=== PATIENT | female | born 1990 | race Caucasian/White ===

== ENCOUNTER 2017-04-02 14:30 | Emergency (ER) | payer MEDICAID ==
[2017-04-02] MEDS ORDERED: Ketorolac 60 MG/2 ML SDV IM ONE (14:53)
[2017-04-02] MEDS ORDERED: Lidocaine 2% Viscous Solution 15 ML Cup PO ONE (14:54)
[2017-04-02] MEDS ORDERED: Benzocaine 20% Topical Spray UD MUCMEM ONE (14:54)
--- NOTE | 2017-04-02 15:00 | EDM.PDOC ---
ED HPI GENERAL MEDICAL PROBLEM - General Chief Complaint: ENT Problem Stated Complaint: BROKEN TOOTH Time Seen by Provider: 04/02/17 14:42 Source of Information: Reports: Patient History Limitations: Reports: No Limitations - History of Present Illness INITIAL COMMENTS - FREE TEXT/NARRATIVE: Presents reporting that a deep filling fell out of a tooth in the left lower quadrant of her dentition last night. She now complains of throbbing pain that increases with air exposure, cold, hot or pressure. Left Lower Tooth/Teeth Pain Score (Numeric/FACES): 7 - Related Data Allergies Allergy/AdvReac Type Severity Reaction Status Date / Time acetaminophen [From Tylenol] Allergy Swelling Verified 04/02/17 14:46 Penicillins Allergy Numbness Verified 01/03/17 04:12 wheat Allergy Rash Verified 01/03/17 04:12 Home Meds: Home Meds Clindamycin HCl 300 mg PO TID #30 capsule 04/02/17 [Rx] Past Medical History - Past Health History Medical/Surgical History: Denies Medical/Surgical History HEENT History: Reports: None Cardiovascular History: Reports: None Respiratory History: Reports: None Gastrointestinal History: Reports: None Genitourinary History: Reports: None PARTNER History: Reports: Musculoskeletal History: Reports: None Neurological History: Reports: None Psychiatric History: Reports: None Endocrine/Metabolic History: Reports: None Hematologic History: Reports: None Immunologic History: Reports: None Oncologic (Cancer) History: Reports: None Dermatologic History: Reports: None - Infectious Disease History Infectious Disease History: Reports: Chicken Pox, MRSA - Past Surgical History GI Surgical History: Reports: Cholecystectomy Social & Family History - Family History Family Medical History: Noncontributory - Tobacco Use Smoking Status *Q: Current Every Day Smoker Years of Tobacco use: 2 Packs/Tins Daily: 1 - Caffeine Use Caffeine Use: Reports: None - Recreational Drug Use Recreational Drug Use: No Drug Use in Last 12 Months: Yes Recreational Drug Type: Reports: Heroin ED ROS ENT - Review of Systems Review Of Systems: ROS reveals no pertinent complaints other than HPI. ED EXAM, ENT - Physical Exam Exam: See Below Exam Limited By: No Limitations General Appearance: Alert, No Apparent Distress Ears: Normal External Exam Nose: Normal Inspection Mouth/Throat: Normal Inspection, Other (Tooth #20 with a large filling gone and an appearent root exposure.) Head: Atraumatic, Normocephalic Neck: Normal Inspection Respiratory/Chest: No Respiratory Distress, Lungs Clear, Normal Breath Sounds Cardiovascular: Normal Peripheral Pulses, Regular Rate, Rhythm, No Murmur Back: Normal Inspection Extremities: Normal Inspection Neurological: Alert, Oriented Skin: Warm, Dry, Intact, Normal Color, No Rash Lymphatic: No Adenopathy Course - Vital Signs Last Recorded V/S: Last Vital Signs Temp 37.3 C 04/02/17 14:44 Pulse 92 04/02/17 14:44 Resp 18 04/02/17 14:44 BP 139/77 04/02/17 14:44 Pulse Ox 99 04/02/17 14:44 - Orders/Labs/Meds Orders: Active Orders 24 hr Category Date Time Status Benzocaine [Hurricaine One 20%] Med 04/02/17 14:54 Once 2 each MUCMEM ONETIME ONE Lidocaine 2% [Xylocaine 2% Viscous] Med 04/02/17 14:54 Once 15 ml PO ONETIME ONE Medication Orders Benzocaine (Hurricaine One 20%) 2 each MUCMEM ONETIME ONE Stop: 04/02/17 14:55 Lidocaine HCl (Xylocaine 2% Viscous) 15 ml PO ONETIME ONE Stop: 04/02/17 14:55 Meds: Medications Generic Name Dose Route Start Last Admin Trade Name Freq PRN Reason Stop Dose Admin Benzocaine 2 each 04/02/17 14:54 Hurricaine One 20% MUCMEM 04/02/17 14:55 ONETIME ONE Lidocaine HCl 15 ml 04/02/17 14:54 Xylocaine 2% Viscous PO 04/02/17 14:55 ONETIME ONE Discontinued Medications Generic Name Dose Route Start Last Admin Trade Name Freq PRN Reason Stop Dose Admin Ketorolac Tromethamine 60 mg 04/02/17 14:53 Toradol IM 04/02/17 14:54 ONETIME ONE Departure - Departure Time of Disposition: 15:00 Disposition: Home, Self-Care 01 Condition: good Clinical Impression: Pain, dental - Discharge Information Forms: ED Department Discharge Additional Instructions: 1. please make an appointment as soon as possible with a dentist from the list provided or of your choosing 2. take the antibiotic 3 times a day for the next 10 days 3. dental balls: Placed one ball over affected tooth and bite down for 10 minutes every 2 hours 4. [place] every 4-6 hours as needed for pain, no driving or operating machinery - My Orders Last 24 Hours: My Active Orders 04/02/17 14:54 Benzocaine [Hurricaine One 20%] 2 each MUCMEM ONETIME ONE Lidocaine 2% [Xylocaine 2% Viscous] 15 ml PO ONETIME ONE - Assessment/Plan Last 24 Hours: My Active Orders 04/02/17 14:54 Benzocaine [Hurricaine One 20%] 2 each MUCMEM ONETIME ONE Lidocaine 2% [Xylocaine 2% Viscous] 15 ml PO ONETIME ONE
[2017-04-02 15:28] VITALS: BP 129/86
== END 2017-04-02 15:28 | disposition home or self-care (01) ==
LOC: MW.ED 14:30
DX: K08.89 Other specified disorders of teeth and supporting structures (principal); F17.210 Nicotine dependence, cigarettes, uncomplicated; Z88.0 Allergy status to penicillin; Z88.6 Allergy status to analgesic agent; Z91.018 Allergy to other foods; Z90.49 Acquired absence of other specified parts of digestive tract
CPT/HCPCS: 96372; 99282; A9270; J1885; 99283

== ENCOUNTER 2017-09-26 20:09 | Emergency (ER) | payer MEDICAID ==
--- NOTE | 2017-09-26 20:36 | EDM.PDOC ---
ED HPI GENERAL MEDICAL PROBLEM - General Chief Complaint: Skin Complaint Stated Complaint: PT HAS BOIL UNDER RT ARM Time Seen by Provider: 09/26/17 20:19 Source of Information: Reports: Patient History Limitations: Reports: No Limitations - History of Present Illness INITIAL COMMENTS - FREE TEXT/NARRATIVE: HISTORY AND PHYSICAL: History of present illness: Patient is a 27-year-old female who presents to the emergency room with complaints of a "boil" to her right axillary area. She is accompanied by law enforcement as she is currently in custody. States she noticed some redness and swelling for the past week which has progressively gotten larger, firmer and more tender over the past 2 days. She has not expressed any drainage from the site. States she has a history of MRSA. Denies any fever or chills. Review of systems: As per history of present illness and below otherwise all systems reviewed and negative. Past medical history: As per history of present illness and as reviewed below otherwise noncontributory. Surgical history: As per history of present illness and as reviewed below otherwise noncontributory. Social history: No reported history of drug or alcohol abuse. Family history: As per history of present illness and as reviewed below otherwise noncontributory. Physical exam: Gen.: Well-developed and well-nourished 27-year-old female. Appears nontoxic. Alert and oriented. HEENT: Atraumatic, normocephalic, pupils reactive, negative for conjunctival pallor or scleral icterus, mucous membranes moist, throat clear, neck supple, nontender, trachea midline. Lungs: Clear to auscultation, breath sounds equal bilaterally, chest nontender. Heart: S1S2, regular, negative for clicks, rubs, or JVD. Abdomen: Soft, nondistended, nontender. Negative for masses or hepatosplenomegaly. Negative for costovertebral tenderness. Pelvis: Stable nontender. Genitourinary: Deferred. Rectal: Deferred. Skin: There is a firm erythematous area in the right axilla which is approximately 3 fingerbreadths in diameter, tender to palpation. Not fluctuant. Adenitis versus folliculitis in appearance. There are no breast changes. No pustule or head noted. Extremities: Atraumatic, negative for cords or calf pain. Neurovascular unremarkable. Neuro: Awake, alert, oriented. Cranial nerves II through XII unremarkable. Cerebellum unremarkable. Motor and sensory unremarkable throughout. Exam nonfocal. Patient does have a history of MRSA. The "boil" appears to be either an adenitis versus folliculitis which I will treat with antibiotics. We did discuss that if the site does not decrease with the completion of antibiotics that she needs to follow-up with a general surgeon to have this possibly removed. As she is currently in custody of law enforcement by encouraged her to apply gentle heat to the area. She can use ibuprofen as needed for pain management. Diagnostics: [] Therapeutics: [] Impression: Abscess Plan: 1. Please take both the Bactrim DS and clindamycin to treat the infected area. Bactrim DS 1 tab twice a day 10 days; clindamycin 300 mg every 8 hours 10 days. 2. Apply gentle heat to the area. He may take ibuprofen as needed for pain management. Avoid shaving until the infection has cleared. 3. Follow-up with your primary caregiver or a general surgeon if it does not improve. Return to the ED as needed and as discussed Definitive disposition and diagnosis as appropriate pending reevaluation and review of above. Duration: Day(s): Location: Reports: Upper Extremity, Right Quality: Reports: Pressure Right Axilla Pain Score (Numeric/FACES): 8 - Related Data Allergies Allergy/AdvReac Type Severity Reaction Status Date / Time acetaminophen [From Tylenol] Allergy Swelling Verified 09/26/17 20:16 Penicillins Allergy Numbness Verified 09/26/17 20:16 wheat Allergy Rash Verified 09/26/17 20:16 Home Meds: Home Meds QUEtiapine Fumarate [Seroquel] 100 mg PO QPM 09/26/17 [History] Past Medical History - Past Health History Medical/Surgical History: Denies Medical/Surgical History HEENT History: Reports: None Cardiovascular History: Reports: None Respiratory History: Reports: None Gastrointestinal History: Reports: None Genitourinary History: Reports: None [employer] History: Reports: Musculoskeletal History: Reports: None Neurological History: Reports: None Psychiatric History: Reports: None Endocrine/Metabolic History: Reports: None Hematologic History: Reports: None Immunologic History: Reports: None Oncologic (Cancer) History: Reports: None Dermatologic History: Reports: None - Infectious Disease History Infectious Disease History: Reports: Chicken Pox, MRSA - Past Surgical History GI Surgical History: Reports: Cholecystectomy Dermatological Surgical History: Reports: Skin Biopsy Social & Family History - Family History Family Medical History: Noncontributory - Tobacco Use Smoking Status *Q: Current Every Day Smoker Years of Tobacco use: 8 Packs/Tins Daily: 0.5 - Caffeine Use Caffeine Use: Reports: Coffee, Energy Drinks, Soda, Tea - Recreational Drug Use Recreational Drug Use: No Drug Use in Last 12 Months: Yes Recreational Drug Type: Reports: Heroin ED ROS GENERAL - Review of Systems Review Of Systems: ROS reveals no pertinent complaints other than HPI. ED EXAM, SKIN/RASH Exam: See Below (See dictation) Course - Vital Signs Last Recorded V/S: Last Vital Signs Temp 36.8 C 09/26/17 20:17 Pulse 74 09/26/17 20:17 Resp 16 09/26/17 20:17 BP 129/81 09/26/17 20:17 Pulse Ox 98 09/26/17 20:17 Departure - Departure Time of Disposition: 20:37 Disposition: Home, Self-Care 01 Clinical Impression: Abscess - Discharge Information Additional Instructions: My general discharge The following information is given to patients seen in the emergency department who are being discharged to home. This information is to outline your options for follow-up care. We provide all patients seen in our emergency department with a follow-up referral. The need for follow-up, as well as the timing and circumstances, are variable depending upon the specifics of your emergency department visit. If you don't have a primary care physician on staff, we will provide you with a referral. We always advise you to contact your personal physician following an emergency department visit to inform them of the circumstance of the visit and for follow-up with them and/or the need for any referrals to a consulting specialist. The emergency department will also refer you to a specialist when appropriate. This referral assures that you have the opportunity for follow-up care with a specialist. All of these measure are taken in an effort to provide you with optimal care, which includes your follow-up. Under all circumstances we always encourage you to contact your private physician who remains a resource for coordinating your care. When calling for follow-up care, please make the office aware that this follow-up is from your recent emergency room visit. If for any reason you are refused follow-up, please contact the [facility] Emergency Department at and asked to speak to the emergency department charge nurse. MARIA ESTHER [facility] [address] [place] [id number] 1. Please take both the Bactrim DS and clindamycin to treat the infected area. Bactrim DS 1 tab twice a day 10 days; clindamycin 300 mg every 8 hours 10 days. 2. Apply gentle heat to the area. He may take ibuprofen as needed for pain management. Avoid shaving until the infection has cleared. 3. Follow-up with your primary caregiver or a general surgeon if it does not improve. Return to the ED as needed and as discussed
[2017-09-26 20:52] VITALS: BP 107/57
== END 2017-09-26 20:49 | disposition home or self-care (01) ==
LOC: MW.ED 20:09
DX: L02.411 Cutaneous abscess of right axilla (principal); F17.210 Nicotine dependence, cigarettes, uncomplicated; Z88.0 Allergy status to penicillin; Z91.018 Allergy to other foods; Z88.6 Allergy status to analgesic agent
CPT/HCPCS: 99283